=== PATIENT | male | born 1965 | race Caucasian/White ===

== ENCOUNTER 2024-01-18 08:05 | Day surgery (SDC) | payer OTHER ==
[~2024-01-18] VITALS: Ht 188 cm; Wt 72.1 kg
[~2024-01-18 08:05] MED LIST: ALLERGY MED25 MG PO; ASPIRIN EC81 MG; ATORVASTATIN CA10 MG PO; BAYER ASPIRIN E81 MG PO; BENADRYL 50MG C50 MG PO; DIPHENHYDRAMINE50 M3; MINERI1; MULTIVITAMI1 PO; OMEGA 31000 MG PO; PAIN RELIEF325 MG PO; QVAR80 MCG; RANITIDINE150 MG; SLEEP AID PO; THORAZINE100 M1 PO; WELLBUTRIN SR100 MG PO
[2024-01-18] MEDS ORDERED: FAMOTIDINE 10MG/ML 2ML SDV IV ONE (08:10)
[2024-01-18] MEDS ORDERED: LACTATED RINGER'S 1,000 ML IV ONE ×2 (08:10→10:21)
[2024-01-18] MEDS ORDERED: SODIUM CHLORIDE 0.9% 100 ML IV ONE (08:10)
[2024-01-18] MEDS ORDERED: ceFAZolin Sodium 2 GM/VIAL SDV ONE (08:10)
[2024-01-18] MEDS ORDERED: BUPIVACAINE 133 MG/10 ML VIAL IJ ONE (08:39)
[2024-01-18] MEDS ORDERED: SODIUM CHLORIDE 1,000 ML BTL IR ONE (08:40)
[2024-01-18] MEDS ORDERED: STERILE WATER FOR IRRIGATION 1,000 ML BTL IR ONE (08:40)
[2024-01-18] MEDS ORDERED: SODIUM CHLORIDE 20 ML/VIAL SDV ONE (08:44)
[2024-01-18] MEDS ORDERED: PERCOCET 5/325M1 TAB PO (10:04)
[2024-01-18] MEDS ORDERED: ACETAMINOPHEN 100 ML IV ONE (10:36)
[2024-01-18 11:15] VITALS: BP 130/70
[2024-01-18] MEDS ORDERED: SUGAMMADEX SODIUM 200 MG/2 ML SDV IV ONE (12:27)
[2024-01-18] MEDS ORDERED: PROPOFOL 200 MG/20 ML VIAL IV ONE (12:27)
[2024-01-18] MEDS ORDERED: LIDOCAINE HCL 2% 2ML SDV IV ONE (12:27)
[2024-01-18] MEDS ORDERED: ROCURONIUM BROMIDE 10 MG/ML 5ML VIAL IV ONE (12:27)
[2024-01-18] MEDS ORDERED: ePHEDrine SULFATE 50 MG/ML AMP IV ONE (12:27)
[2024-01-20] MEDS ORDERED: CLARITIN10 M1 PO (02:08)
[2024-01-20] MEDS ORDERED: MOTRIN800 MG PO (02:08)
[2024-01-20] MEDS ORDERED: TRAMADOL HCL50 MG PO (02:10)
[2024-01-20] MEDS ORDERED: VALTREX500 MG PO (02:12)
[2024-01-20] MEDS ORDERED: MULTI VIT PO (03:29)
[2024-01-21] MEDS ORDERED: ALPRAZOLAM0.5 M2 PO (07:26)
[2024-01-21] MEDS ORDERED: ENTERIC COATED325 MG PO (07:26)
[2024-01-21] MEDS ORDERED: TOPROL XL25 M1 PO (07:26)
== END 2024-01-18 11:45 | disposition designated cancer center or children's hospital (05) | DRG 352 ==
LOC: ORM 08:05
PROVIDERS: ATTEND Surgery
PROC: 0YU50JZ Supplement Right Inguinal Region with Synthetic Substitute, Open Approach (ICD-10-PCS; principal; 2024-01-18)
DX: K40.90 Unilateral inguinal hernia, without obstruction or gangrene, not specified as recurrent (principal)
CPT/HCPCS: C9290; J0131; J0690